=== PATIENT | male | born 1980 ===

== ENCOUNTER 2018-01-27 19:56 | Emergency (ER) | payer OTHER ==
[~2018-01-27] VITALS: Ht 193 cm; Wt 204.1 kg
[2018-01-27] MEDS ORDERED: HYDROCHLOROTHIAZIDE 25 MG TABLET PO ONE (21:00)
[2018-01-27] MEDS ORDERED: CLINDAMYCIN HCL 150 MG CAPSULE PO ONE (21:00)
[2018-01-27] MEDS ORDERED: LISINOPRIL 10 MG TABLET PO ONE (21:00)
[2018-01-27] MEDS ORDERED: NEOMY/BACITRA/POLYMYXIN B OINT UD PACKET TP ONE ×3 (21:00→21:50)
[2018-01-27] MEDS ORDERED: CLINDAMYCIN HCL 300 MG CAPSULE ONE (21:15)
[2018-01-27] MEDS ORDERED: LISINOPRIL 10 MG TABLET ONE (21:15)
[2018-01-27] MEDS ORDERED: HYDROCHLOROTHIAZIDE 25 MG TABLET ONE (21:15)
--- NOTE | 2018-01-27 21:53 | NUR ---
Patient discharged to home in stable conditon. Written and verbal after care instructions given. Patient verbalizes understanding of instructions.
[2018-01-27 21:56] VITALS: BP 159/74
== END 2018-01-27 21:56 | disposition home or self-care (01) ==
LOC: ER 20:02
DX: L03.116 Cellulitis of left lower limb (principal); S81.812A Laceration without foreign body, left lower leg, initial encounter; I10 Essential (primary) hypertension; Z88.0 Allergy status to penicillin; Z88.2 Allergy status to sulfonamides; W22.8XXA Striking against or struck by other objects, initial encounter; Y93.89 Activity, other specified; Y92.89 Other specified places as the place of occurrence of the external cause; Y99.8 Other external cause status
CPT/HCPCS: 82962; 99284; A4663